=== PATIENT | female | born 2000 | race African-American/Black ===

== ENCOUNTER 2022-06-05 14:41 | Emergency (ER) | payer SELFPAY ==
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
[2022-06-05 14:44] VITALS: BP 132/79; PULSE 118; RESP 20; TEMP 36.6; O2SAT 100
--- NOTE | 2022-06-05 14:44 | ECG_ITS ---
Measurements Intervals [place] Rate: 121 P: 46 RI: 180 QRS: -14 QRSD: 104 T: 54 QT: 329 QTc: 467 Interpretive Statements SINUS TACHYCARDIA VOLTAGE CRITERIA FOR LVH MINIMAL Q WAVES- HIGH LATERAL LEADS BASELINE WANDER- V4-V5 ABNORMAL ECG Electronically Signed On 06-05-2022 17:03:48 CDT by Torrey Jerry D.O.
[2022-06-05 14:46] VITALS: BP 132/79; PULSE 125; RESP 29
--- NOTE | 2022-06-05 15:00 | PC.NURSE ---
Patient repeatedly trying to sit up and climb out of bed. Security at bedside to keep patient in bed and safe. Dry Color Mixer established IV site to administer medications to help patient who has become combative and yelling.
[2022-06-05 15:01] LABS: Basophils Absolute Auto 0.1 K/mm3 (0.0-0.1); Basophils Percent Auto 0.8 % (0.2-1.2); Eosinophils Absolute Auto 0.2 K/mm3 (0-0.3); Eosinophils Percent Auto 3.6 % (0-4.4); Hematocrit 39.5 % (37.0-47.0); Hemoglobin 11.8 g/dL (12.0-15.0); Immature Granulocyte Absolute 0.02 K/mm3 (0.00-0.031); Immature Granulocyte Percent A 0.3 % (0-0.5); Lymphocytes Absolute Auto 2.85 K/mm3 (0.9-3.2); Mean Corpuscular HGB Conc 29.9 g/dl (32-36); Mean Corpuscular Hemoglobin 22.9 pg (26-34); Mean Corpuscular Volume 76.7 fl (80-100); Mean Platelet Volume 9.3 fl (7.4-10.4); Monocytes Absolute Auto 0.8 K/mm3 (0.1-0.6); Monocytes Percent Auto 12.5 % (2.6-8.5); Neutrophils Absolute Auto 2.5 K/mm3 (1.3-6.7); Neutrophils Percent Auto 38.8 % (45.5-73.1); Platelet Count Result 393 k/mm3 (150-375); Red Blood Count 5.15 M/mm3 (4.2-5.4); Red Cell Distribution Width 18.3 % (11.5-14.5); White Blood Count 6.5 K/mm3 (4.5-10.0)
[2022-06-05] MEDS: LORazepam INJ (*CRX) 2 MG/ML VIAL IV PUSH (15:06)
--- NOTE | 2022-06-05 15:06 | PC.NURSE ---
Stick Puller administered medication as ordered.
[2022-06-05] MEDS: SODIUM CHLORIDE 0.9% IV 1,000 ML 999 ML IV CONT ×2 (15:07→18:07)
[2022-06-05] MEDS: HALOPERIDOL LACTATE 5 MG/ML VIAL IM (15:10)
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
[2022-06-05 15:11] LABS: Acetaminophen < 10 ug/mL (10-30); Salicylate < 1.0 mg/dL (2-20)
[2022-06-05 15:12] LABS: Alanine Aminotransferase 46 U/L (6-35); Albumin Level 4.7 g/dL (3.5-5.1); Alkaline Phosphatase 81 U/L (38-126); Anion Gap 10 mmol/L (8-16); Aspartate Amino Transferase 60 U/L (14-36); Bilirubin,Total 0.4 mg/dL (0.2-1.3); Blood Urea Nitrogen 12 mg/dL (7-17); Calcium 8.9 mg/dL (8.4-10.2); Carbon Dioxide 29 mmol/L (22-30); Chloride 108 mmol/L (98-107); Creatine Kinase 981 U/L (30-135); Estimated Glomerular Filt Rate > 60; Glucose 109 mg/dL (65-110); Sodium 147 mmol/L (137-145)
[2022-06-05 15:14] LABS: INR 1.1; Prothrombin Time 13.3 Seconds (11.1-14.7)
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
[2022-06-05 15:31] LABS: Ethanol 448 mg/dL (<10)
[2022-06-05 15:36] LABS: Anisocytosis 1+ (NORMAL); Hypochromasia 1+ (NORMAL); Platelet Estimate Adequate (Adequate); Poikilocytosis 1+ (NORMAL)
--- NOTE | 2022-06-05 15:44 | PC.NURSE ---
Patient finally calmed down and casualty underwriter was able to leave bedside. Yvette, technical lead at bedside to observe patient for safety.
--- NOTE | 2022-06-05 15:50 | PC.NURSE ---
Patient kept yelling that she had to go to the bathroom. STEVE Crawford and lyric writer assisted patient to pull down her pants and assist her onto bedpan. Bedpan placed under patient but patient unable to produce a bowel movement or urine. Bedpan removed and patient's pants removed. Patient's gown changed to an appropriate size gown. Patient laid down and is now calm and cooperative. STEVE Crawford at bedside to observe patient for safety.
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
[2022-06-05 15:55] LABS: Thyroid Stimulating Hormone 0.667 uIU/mL (0.465-4.680)
[2022-06-05 16:23] VITALS: PULSE 103; RESP 17
[2022-06-05 16:46] VITALS: BP 123/110; PULSE 101; RESP 16
[2022-06-05 17:31] VITALS: BP 113/59; PULSE 106; RESP 20
--- NOTE | 2022-06-05 17:54 | PC.NURSE ---
Patient belongings placed in patient belonging locker
[2022-06-05 18:01] VITALS: BP 123/64; PULSE 94; RESP 15
--- NOTE | 2022-06-05 19:30 | PC.NURSE ---
Pt is awake at this time and MD was in the room when she denies any Suicidal ideations. Pt is A&0x4 and able to express needs and thoughts. Pt was moved to room 15 for closer mx
[2022-06-05 20:20] LABS: Appearance Urine Clear (Clear); Bilirubin Urine Negative (Negative); Color Urine Yellow (Yellow); Glucose Urine UA Negative (Negative); Ketones Urine Trace mg/dL (Negative); Leukocyte Esterase Ur Negative LEU/UL (Negative); Nitrate Urine Negative (Negative); Protein Urine 3+ mg/dL (Negative); Specific Grav Ur >= 1.030 (1.001-1.035); Urobilinogen Urine 0.2 mg/dL (<2.0)
[2022-06-05 20:26] LABS: Bacteria Urine Trace /hpf; Mucus Urine Few /lpf; RBC Urine 0-2 /hpf (0-2); Squamous Epithelial Cell Urine Many /hpf (Few); WBC Urine 0-3 /hpf
[2022-06-05 20:33] LABS: Add Urine Microscopic? YES; Blood Urine Trace-Intact (Negative)
[2022-06-05 20:51] LABS: Amphetamine Screen Urine Negative (Negative); Barbiturate Screen Urine Negative (Negative); Benzodiazepines Screen Urine Negative (Negative); Cannabinoid Screen Urine Negative (Negative); Cocaine Screen Urine Negative (Negative); Methadone Screen Urine Negative (Negative); Opiate Screen Urine Negative (Negative); Phencyclidine Screen Urine Negative (Negative)
[2022-06-05 21:03] LABS: Ethanol 361 mg/dL (<10)
--- NOTE | 2022-06-05 21:42 | PC.NURSE ---
mother called and gave phone number in case of emergency [phone] mother's name is Paz
[2022-06-06 02:51] VITALS: BP 138/79; PULSE 88; RESP 18; TEMP 36.6; O2SAT 99
[2022-06-06 06:12] LABS: Ethanol 193 mg/dL (<10)
[2022-06-06 11:24] LABS: Ethanol 104 mg/dL (<10)
--- NOTE | 2022-06-06 11:34 | PC.NURSE ---
Cottonseed Meat Presser contacted Crisis regarding patient evaluation, lead technical writer left message at this time.
--- NOTE | 2022-06-06 11:38 | PC.NURSE ---
Patient denies any suicidal ideation, patient calm and cooperative with staff.
--- NOTE | 2022-06-06 12:11 | PC.NURSE ---
This rn contacted crisis again. no answer and a phone call has still not been returned. Attempted to it audit manager dede [phone] and voicemail states out of town on vacation will not return phone calls until she returns to the office.
== END 2022-06-06 12:58 | disposition home or self-care (01) ==
PROVIDERS: Emergency Medicine; Emergency Provider Emergency Medicine
DX: F10.129 Alcohol abuse with intoxication, unspecified (principal); Y90.8 Blood alcohol level of 240 mg/100 ml or more; R00.0 Tachycardia, unspecified; R94.31 Abnormal electrocardiogram [ECG] [EKG]; R91.8 Other nonspecific abnormal finding of lung field
CPT/HCPCS: 36415; 71045; 80053; 80307; 81001; 81025; 82550; 84443; 85025; 85610; 93005; 96361; 96372; 96374; 99284; J1630; J2060; J7030

== ENCOUNTER 2022-09-29 20:48 | Emergency (ER) | payer OTHER, SELFPAY ==
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
[2022-09-29 20:55] VITALS: BP 133/89; PULSE 88; RESP 18; TEMP 36.9; O2SAT 99
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
[2022-09-30 01:07] LABS: Basophils Percent Auto 0.5 % (0.2-1.2); Eosinophils Absolute Auto 0.2 K/mm3 (0-0.3); Eosinophils Percent Auto 2.8 % (0-4.4); Hematocrit 35.4 % (37.0-47.0); Hemoglobin 11.1 g/dL (12.0-15.0); Immature Granulocyte Absolute 0.03 K/mm3 (0.00-0.031); Immature Granulocyte Percent A 0.4 % (0-0.5); Lymphocytes Absolute Auto 2.23 K/mm3 (0.9-3.2); Lymphocytes Percent Auto 27.3 % (18.3-44.2); Mean Corpuscular HGB Conc 31.4 g/dl (32-36); Mean Corpuscular Hemoglobin 23.8 pg (26-34); Mean Platelet Volume 9.3 fl (7.4-10.4); Monocytes Absolute Auto 0.9 K/mm3 (0.1-0.6); Monocytes Percent Auto 10.5 % (2.6-8.5); Neutrophils Absolute Auto 4.8 K/mm3 (1.3-6.7); Neutrophils Percent Auto 58.5 % (45.5-73.1); Platelet Count Result 358 k/mm3 (150-375); Red Blood Count 4.66 M/mm3 (4.2-5.4); Red Cell Distribution Width 17.4 % (11.5-14.5); White Blood Count 8.2 K/mm3 (4.5-10.0)
[2022-09-30 01:46] LABS: Alanine Aminotransferase 37 U/L (6-35); Albumin Level 4.5 g/dL (3.5-5.1); Alkaline Phosphatase 92 U/L (38-126); Anion Gap 9 mmol/L (8-16); Aspartate Amino Transferase 50 U/L (14-36); Bilirubin,Total 0.6 mg/dL (0.2-1.3); Blood Urea Nitrogen 11 mg/dL (7-17); Calcium 9.3 mg/dL (8.4-10.2); Carbon Dioxide 24 mmol/L (22-30); Chloride 102 mmol/L (98-107); Estimated CRCL calculation 178 ml/min; Estimated Glomerular Filt Rate > 60; Glucose 87 mg/dL (65-110); Potassium 3.7 mmol/L (3.4-5.0); Sodium 135 mmol/L (137-145)
[2022-09-30 04:47] VITALS: BP 140/88; PULSE 88; RESP 18; O2SAT 98
== END 2022-09-30 04:51 | disposition left against medical advice (07) ==
PROVIDERS: Physician Assistant; Emergency Provider Emergency Medicine
DX: R10.9 Unspecified abdominal pain (principal); R07.89 Other chest pain; M79.662 Pain in left lower leg; M79.661 Pain in right lower leg; V47.0XXA Car driver injured in collision with fixed or stationary object in nontraffic accident, initial encounter
CPT/HCPCS: 36415; 70450; 70486; 71260; 72125; 73590; 74177; 80053; 81025; 85025; 96374; 99284; J0131; Q9967

== ENCOUNTER 2022-12-30 02:18 | Emergency (ER) | payer OTHER, SELFPAY ==
--- NOTE | 2022-12-30 02:29 | ED.GENADULT ---
HPI - General Adult General Chief complaint: Psychiatric Symptoms <Gregor Noriega MD - Last Filed: 12/30/22 20:42> Stated complaint: si <Gregor Noriega MD - Last Filed: 12/30/22 20:42> History of Present Illness HPI narrative: A 22-year-old female brought in by police due to suicidal ideation. They were called to a domestic dispute. They found the boyfriend out in the car. He says that the patient has been acting erratic for the last 2 days. She has been asking him to kill her. She has been physically aggressive. She has been hospitalized in the past for psychiatric issues. while the patient was being loaded into the ambulance to be brought to the hospital she did jump out of the back of the ambulance while it was not moving. She was then handcuffed by police. Patient is very agitated. Patient refuses to say anything to me other than I wanna talk to my boyfriend!!! <Gregor Noriega MD - Last Filed: 12/30/22 20:42> Related Data Allergies/adverse reactions: Allergies Allergy/AdvReac Type Severity Reaction Status Date / Time No Known Allergies Allergy Verified 12/30/22 03:50 <Gregor Noriega MD - Last Filed: 12/30/22 20:42> [facility] Past Medical History Medical History: Medical History (Updated 12/31/22 @ 00:00 by Background Daemon) Unknown if patient has history of psychiatric disorder <Gregor Noriega MD - Last Filed: 12/30/22 20:42> Social History Social History: Social History Substance use type: unknown <Gregor Noriega MD - Last Filed: 12/30/22 20:42> Exam Narrative: APPEARANCE: Patient is crying loudly, she is screaming at anyone he tries to speak to her. She is in handcuffs. Police are present. Head: atraumatic. EYES: EOMI, NOSE: Atraumatic NECK: Trachea midline RESPIRATORY: No increased rate of breathing CARDIOVASCULAR: RRR, ABDOMINAL: Non-distended MUSCULOSKELETAl: No obvious deformities NEURO: Alert. Moving 4/4 extremities SKIN:: Warm, dry. Normal color PSYCHIATRIC: Patient is agitated <Gregor Noriega MD - Last Filed: 12/30/22 20:42> Course Reevaluation(s) Reevaluation #1: Patient care was signed out to me by Dr. Noriega with blood alcohol and crisis counselor evaluation pending. Patient's blood alcohol draw at 5:11 was 77. Patient is medically cleared for crisis counselor evaluation. Patient also medically cleared for transport and inpatient psychiatric placement as needed. At time of signout crisis counselor evaluation is pending. <Tarik Brian MD - Last Filed: 12/31/22 07:00> Vital Signs Vital signs: Vital Signs Temperature 97.9 F 12/30/22 02:30 Pulse Rate 120 H 12/30/22 02:30 Respiratory Rate 18 12/30/22 02:30 Blood Pressure 165/118 H 12/30/22 02:30 Pulse Oximetry 99 12/30/22 02:30 Oxygen Delivery Room Air 12/30/22 02:30 Temperature 98.7 F 12/30/22 20:48 Pulse Rate 94 12/30/22 20:48 Respiratory Rate 18 12/30/22 20:48 Blood Pressure 140/89 12/30/22 20:48 Pulse Oximetry 100 12/30/22 20:48 Oxygen Delivery Room Air 12/30/22 02:30 <Gregor Noriega MD - Last Filed: 12/30/22 20:42> Vital Signs Temperature 97.9 F 12/30/22 02:30 Pulse Rate 120 H 12/30/22 02:30 Respiratory Rate 18 12/30/22 02:30 Blood Pressure 165/118 H 12/30/22 02:30 Pulse Oximetry 99 12/30/22 02:30 Oxygen Delivery Room Air 12/30/22 02:30 Temperature 98.7 F 12/30/22 20:48 Pulse Rate 94 12/30/22 20:48 Respiratory Rate 18 12/30/22 20:48 Blood Pressure 140/89 12/30/22 20:48 Pulse Oximetry 100 12/30/22 20:48 Oxygen Delivery Room Air 12/30/22 02:30 <Tarik Brian MD - Last Filed: 12/31/22 07:00> Medical Decision Making MDM Narrative Medical decision making narrative: -Presentation: is a 22-year-old female brought to the ED for suicidal ideation. She is incredibly agitated in the room and is
[2022-12-30 02:30] VITALS: BP 165/118; PULSE 120; RESP 18; TEMP 36.6; O2SAT 99
[2022-12-30] MEDS: LORazepam INJ (*CRX) 2 MG/ML VIAL IM (03:00)
[2022-12-30] MEDS: HALOPERIDOL LACTATE 5 MG/ML VIAL IM (03:00)
[2022-12-30 03:28] LABS: Basophils Absolute Auto 0.1 K/mm3 (0.0-0.1); Eosinophils Absolute Auto 0.1 K/mm3 (0-0.3); Eosinophils Percent Auto 2.9 % (0-4.4); Hematocrit 38.9 % (37.0-47.0); Hemoglobin 12.2 g/dL (12.0-15.0); Immature Granulocyte Absolute 0.02 K/mm3 (0.00-0.031); Immature Granulocyte Percent A 0.4 % (0-0.5); Lymphocytes Absolute Auto 2.07 K/mm3 (0.9-3.2); Lymphocytes Percent Auto 42.2 % (18.3-44.2); Mean Corpuscular HGB Conc 31.4 g/dl (32-36); Mean Corpuscular Hemoglobin 23.9 pg (26-34); Mean Corpuscular Volume 76.3 fl (80-100); Mean Platelet Volume 8.6 fl (7.4-10.4); Monocytes Absolute Auto 0.3 K/mm3 (0.1-0.6); Monocytes Percent Auto 5.7 % (2.6-8.5); Neutrophils Absolute Auto 2.3 K/mm3 (1.3-6.7); Neutrophils Percent Auto 47.8 % (45.5-73.1); Platelet Count Result 399 k/mm3 (150-375); Red Cell Distribution Width 20.6 % (11.5-14.5); White Blood Count 4.9 K/mm3 (4.5-10.0)
[2022-12-30 03:42] LABS: Alanine Aminotransferase 34 U/L (6-35); Albumin Level 4.7 g/dL (3.5-5.1); Alkaline Phosphatase 108 U/L (38-126); Anion Gap 11 mmol/L (8-16); Aspartate Amino Transferase 66 U/L (14-36); Bilirubin,Total 0.5 mg/dL (0.2-1.3); Blood Urea Nitrogen 7 mg/dL (7-17); Calcium 8.3 mg/dL (8.4-10.2); Carbon Dioxide 24 mmol/L (22-30); Chloride 105 mmol/L (98-107); Creatine Kinase 715 U/L (30-135); Estimated CRCL calculation 140 ml/min; Estimated Glomerular Filt Rate > 60; Glucose 111 mg/dL (65-110); Potassium 3.5 mmol/L (3.4-5.0); Sodium 140 mmol/L (137-145)
[2022-12-30 03:48] LABS: Appearance Urine Clear (Clear); Bilirubin Urine Negative (Negative); Blood Urine 2+ (Negative); Color Urine Yellow (Yellow); Glucose Urine UA Negative (Negative); Ketones Urine Negative (Negative); Leukocyte Esterase Ur Negative LEU/UL (Negative); Nitrate Urine Negative (Negative); Protein Urine 3+ mg/dL (Negative); Specific Grav Ur >= 1.030 (1.001-1.035); pH Urine 5.5 (5.0-9.0)
[2022-12-30 03:52] LABS: Bacteria Urine Trace /hpf; Mucus Urine Few /lpf; RBC Urine 0-2 /hpf (0-2); Squamous Epithelial Cell Urine Many /hpf (Few); Transitional Epi Cells Urine Rare /hpf (None Seen)
[2022-12-30 03:53] LABS: Add Urine Microscopic? YES
[2022-12-30 03:55] LABS: Ethanol 374 mg/dL (<10)
[2022-12-30 04:05] LABS: Amphetamine Screen Urine Negative (Negative); Barbiturate Screen Urine Negative (Negative); Benzodiazepines Screen Urine Negative (Negative); Cannabinoid Screen Urine Negative (Negative); Cocaine Screen Urine Negative (Negative); Methadone Screen Urine Negative (Negative); Opiate Screen Urine Positive (Negative); Phencyclidine Screen Urine Negative (Negative)
--- NOTE | 2022-12-30 06:00 | PC.NURSE ---
PT'S MOTHER ROLANDO CALLED FOR UPDATE ON PT. SHE STATES THE BOYFRIEND OF ROSALES TOLD HER THAT ROSALES HAS CERVICAL CANCER AND MOTHER IS CONCERNED ABOUT HER PHYSICAL WELL HER MENTAL HEALTH. REQUESTED TO BE CALLED BACK AT [phone] AFTER PSYCH CONSULT IS COMPLETED. HER FATHER AGNES CAN ALSO BE REACHED AT [phone]
--- NOTE | 2022-12-30 08:22 | PC.NURSE ---
precautionary breakfast tray ordered
--- NOTE | 2022-12-30 11:30 | PC.NURSE ---
pt restless. making several phone calls. states she wants to get out of the hospital because its making her anxious
[2022-12-30 13:03] LABS: Ethanol 167 mg/dL (<10)
--- NOTE | 2022-12-30 15:46 | PC.NURSE ---
pt made aware of plan of care. provided with multiple cups of water. pt remains cooperative with staff.
[2022-12-30 17:34] LABS: Ethanol 77 mg/dL (<10)
[2022-12-30 20:48] VITALS: BP 140/89; PULSE 94; RESP 18; TEMP 37.1; O2SAT 100
== END 2022-12-30 20:49 | disposition home or self-care (01) ==
PROVIDERS: Emergency Medicine; Emergency Provider Emergency Medicine; PCP Family Medicine
DX: F10.10 Alcohol abuse, uncomplicated (principal); R45.1 Restlessness and agitation; Y90.8 Blood alcohol level of 240 mg/100 ml or more
CPT/HCPCS: 36415; 80053; 80307; 81001; 81025; 82550; 85025; 96372; 99284; J1630; J2060